=== PATIENT | female | born 1975 | race Caucasian/White ===

== ENCOUNTER 2021-04-25 01:17 | Inpatient (IN) ==
[2021-04-25 02:52] LABS: Basophils % 0.1 % (0.0-0.8); Eosinophils % 0.3 % (0.00-10.9); Hematocrit 40.3 VOL% (35.7-47.0); Hemoglobin 13.5 GM/DL (12.0-16.0); Immature Granulocytes % 0.7 %; Immature Granulocytes Absolute 0.09 #; Lymphocytes # 0.7 10*3/uL (1.4-4.0); Lymphocytes % 5.5 % (21.3-54.2); Mean Corpuscular HGB Conc 33.5 GM/DL (32-36); Mean Platelet Volume 9.2 FL (9.6-12.0); Monocytes % 4.3 % (1.7-12.7); Neutrophils % 89.1 % (38.7-73.9); Platelet Count 200 T/CUMM (130-400); Red Blood Count 4.07 MC/CUMM (3.8-5.5); Red Cell Distribution Width 12.1 % (9.3-17.3); White Blood Count 13.4 T/CUMM (4-12)
[2021-04-25 03:11] LABS: Albumin 2.9 G/DL (3.4-5.0); Bilirubin,Total 0.6 MG/DL (0.20-1.00); Calcium 9.3 MG/DL (8.5-10.1); Osmolality,Calculated 272.8 MOS/KG (273-304); Potassium 3.7 MMOL/L (3.5-5.1); Total Protein 6.3 G/DL (6.4-8.2)
[2021-04-25] MEDS ORDERED: DEXTROSE 50% 25 GM/50 ML SYRINGE IV PRN (04:00)
[2021-04-25 04:17] LABS: Bilirubin,Urine Negative (Negative); Blood, Urine Negative (Negative); Glucose,Urine (UA) Negative (Negative); Ketones,Urine 20 mg/dL (Negative); Mucus,Urine Many /LPF (Occasional); Nitrite,Urine Negative (Negative); Protein,Urine 30 MG/DL; Squamous Epithelial Cell,Urine Occasional /HPF (0-10); Urine Appearance Slightly Hazy (Clear); Urine Color Amber (Yellow); Urine Specific Gravity 1.023 (1.001-1.035)
[2021-04-25 04:23] LABS: INR 1.1; PT Patient Result 12.2 SECS (10.5-12.0); Partial Thromboplastin Time 39.7 SECS (23.8-32.1)
[2021-04-25 04:24] LABS: Barbiturates Screen,Urine Negative (Negative); Benzodiazepines Screen,Urine Negative (Negative); Cannabinoid Screen,Urine Negative (Negative); Opiate Screen,Urine Positive (Negative); Phencyclidine Screen,Urine Negative (Negative)
[2021-04-25] MEDS ORDERED: AMOXICILLIN/CLAV 875 MG TABLET PO SCH (09:00)
[2021-04-25] MEDS: ASPIRIN CHEW 81 MG TABLET PO SCH (10:40)
[2021-04-25] MEDS: APIXABAN 5 MG TABLET PO SCH ×2 (10:40→20:54)
[2021-04-25] MEDS: CITALOPRAM 20 MG TABLET PO SCH (10:40)
[2021-04-25] MEDS: FOLIC ACID 1 MG TABLET PO SCH (10:40)
[2021-04-25] MEDS: ATORVASTATIN 40 MG TABLET PO SCH (20:54)
[2021-04-26] MEDS: buPROPion SR 100 MG TABLET PO SCH (08:46)
[2021-04-26] MEDS: lamoTRIgine 100 MG TABLET PO SCH (08:46)
[2021-04-26] MEDS: PANTOPRAZOLE 40 MG TABLET PO SCH (08:46)
[2021-04-26] MEDS: ASPIRIN CHEW 81 MG TABLET PO SCH (08:46)
[2021-04-26] MEDS: FOLIC ACID 1 MG TABLET PO SCH (08:46)
[2021-04-26] MEDS: CYANOCOBALAMIN 500 MCG TABLET PO SCH (08:47)
[2021-04-26] MEDS: VALPROIC ACID 250 MG/5 ML UDCUP PO SCH (08:47)
[2021-04-26] MEDS: APIXABAN 5 MG TABLET PO SCH ×2 (08:47→20:30)
[2021-04-26] MEDS: CITALOPRAM 20 MG TABLET PO SCH (08:47)
[2021-04-26] MEDS: ATORVASTATIN 40 MG TABLET PO SCH (20:30)
[2021-04-27] MEDS ORDERED: ZIPRASIDONE 20 MG/1 ML VIAL IM ONE (03:10)
[2021-04-27] MEDS: buPROPion SR 100 MG TABLET PO SCH (10:49)
[2021-04-27] MEDS: CITALOPRAM 20 MG TABLET PO SCH (10:49)
[2021-04-27] MEDS: CYANOCOBALAMIN 500 MCG TABLET PO SCH (10:49)
[2021-04-27] MEDS: APIXABAN 5 MG TABLET PO SCH ×2 (10:49→21:00)
[2021-04-27] MEDS: VALPROIC ACID 250 MG/5 ML UDCUP PO SCH (10:49)
[2021-04-27] MEDS: PANTOPRAZOLE 40 MG TABLET PO SCH (10:49)
[2021-04-27] MEDS: FOLIC ACID 1 MG TABLET PO SCH (10:49)
[2021-04-27] MEDS: lamoTRIgine 100 MG TABLET PO SCH (10:49)
[2021-04-27] MEDS: ASPIRIN CHEW 81 MG TABLET PO SCH (10:49)
[2021-04-27] MEDS: LORazepam 2 MG/1 ML VIAL IV PRN (17:22)
[2021-04-27] MEDS: ATORVASTATIN 40 MG TABLET PO SCH (21:00)
[2021-04-28 08:11] LABS: Basophils % 0.3 % (0.0-0.8); Eosinophils # 0.3 10*3/uL (0.0-0.87); Eosinophils % 3.9 % (0.00-10.9); Hematocrit 41.3 VOL% (35.7-47.0); Hemoglobin 13.5 GM/DL (12.0-16.0); Immature Granulocytes % 0.4 %; Immature Granulocytes Absolute 0.03 #; Lymphocytes % 14.4 % (21.3-54.2); Mean Corpuscular HGB Conc 32.7 GM/DL (32-36); Mean Platelet Volume 9.4 FL (9.6-12.0); Monocytes % 6.4 % (1.7-12.7); Neutrophils % 74.6 % (38.7-73.9); Platelet Count 190 T/CUMM (130-400); Red Blood Count 4.17 MC/CUMM (3.8-5.5); Red Cell Distribution Width 12.1 % (9.3-17.3)
[2021-04-28 08:26] LABS: Osmolality,Calculated 272.5 MOS/KG (273-304); Potassium 2.9 MMOL/L (3.5-5.1)
[2021-04-28] MEDS: ASPIRIN CHEW 81 MG TABLET PO SCH (08:55)
[2021-04-28] MEDS: lamoTRIgine 100 MG TABLET PO SCH (08:55)
[2021-04-28] MEDS: FOLIC ACID 1 MG TABLET PO SCH (08:55)
[2021-04-28] MEDS: buPROPion SR 100 MG TABLET PO SCH (08:55)
[2021-04-28] MEDS: CITALOPRAM 20 MG TABLET PO SCH (08:56)
[2021-04-28] MEDS: APIXABAN 5 MG TABLET PO SCH ×2 (08:56→21:25)
[2021-04-28] MEDS: CYANOCOBALAMIN 500 MCG TABLET PO SCH (08:56)
[2021-04-28] MEDS: VALPROIC ACID 250 MG/5 ML UDCUP PO SCH (08:56)
[2021-04-28] MEDS: PANTOPRAZOLE 40 MG TABLET PO SCH (08:57)
[2021-04-28] MEDS: POTASSIUM CHLORIDE RIDER 10 MEQ/100 ML PREMIX IV PRN ×5 (14:04→22:37)
[2021-04-28] MEDS: ATORVASTATIN 40 MG TABLET PO SCH (21:25)
[2021-04-29] MEDS: LORazepam 2 MG/1 ML VIAL IV PRN (02:33)
[2021-04-29 05:02] LABS: Basophils % 0.2 % (0.0-0.8); Eosinophils # 0.3 10*3/uL (0.0-0.87); Eosinophils % 3.2 % (0.00-10.9); Hematocrit 38.7 VOL% (35.7-47.0); Hemoglobin 12.7 GM/DL (12.0-16.0); Immature Granulocytes % 0.5 %; Immature Granulocytes Absolute 0.04 #; Lymphocytes # 1.7 10*3/uL (1.4-4.0); Lymphocytes % 20.3 % (21.3-54.2); Mean Corpuscular HGB Conc 32.8 GM/DL (32-36); Mean Corpuscular Volume 99.2 FL (87-102); Mean Platelet Volume 9.6 FL (9.6-12.0); Monocytes % 6.1 % (1.7-12.7); Neutrophils % 69.7 % (38.7-73.9); Platelet Count 195 T/CUMM (130-400); White Blood Count 8.5 T/CUMM (4-12)
[2021-04-29 05:30] LABS: Albumin 2.7 G/DL (3.4-5.0); Bilirubin,Total 0.4 MG/DL (0.20-1.00); Calcium 8.8 MG/DL (8.5-10.1); Osmolality,Calculated 276.3 MOS/KG (273-304); Potassium 3.3 MMOL/L (3.5-5.1); Total Protein 5.6 G/DL (6.4-8.2)
[2021-04-29] MEDS: buPROPion SR 100 MG TABLET PO SCH (09:09)
[2021-04-29] MEDS: ASPIRIN CHEW 81 MG TABLET PO SCH (09:09)
[2021-04-29] MEDS: CITALOPRAM 20 MG TABLET PO SCH (09:09)
[2021-04-29] MEDS: APIXABAN 5 MG TABLET PO SCH ×2 (09:09→20:45)
[2021-04-29] MEDS: POTASSIUM CHLORIDE RIDER 10 MEQ/100 ML PREMIX IV PRN ×3 (09:09→14:20)
[2021-04-29] MEDS: PANTOPRAZOLE 40 MG TABLET PO SCH (09:09)
[2021-04-29] MEDS: CYANOCOBALAMIN 500 MCG TABLET PO SCH (09:09)
[2021-04-29] MEDS: FOLIC ACID 1 MG TABLET PO SCH (09:09)
[2021-04-29] MEDS: VALPROIC ACID 250 MG/5 ML UDCUP PO SCH (09:10)
[2021-04-29] MEDS: lamoTRIgine 100 MG TABLET PO SCH (09:19)
[2021-04-29] MEDS ORDERED: TUBERCULIN SKIN TEST 0.1 ML SYRINGE INTRADERM ONE (11:00)
[2021-04-29] MEDS: ATORVASTATIN 40 MG TABLET PO SCH (20:45)
[2021-04-30 06:02] LABS: Basophils % 0.2 % (0.0-0.8); Eosinophils # 0.3 10*3/uL (0.0-0.87); Eosinophils % 3.7 % (0.00-10.9); Hematocrit 40.6 VOL% (35.7-47.0); Immature Granulocytes % 0.6 %; Immature Granulocytes Absolute 0.05 #; Lymphocytes # 1.2 10*3/uL (1.4-4.0); Lymphocytes % 13.9 % (21.3-54.2); Mean Corpuscular Volume 98.8 FL (87-102); Mean Platelet Volume 9.2 FL (9.6-12.0); Monocytes % 6.8 % (1.7-12.7); Neutrophils % 74.8 % (38.7-73.9); Platelet Count 168 T/CUMM (130-400); Red Blood Count 4.11 MC/CUMM (3.8-5.5); White Blood Count 8.3 T/CUMM (4-12)
[2021-04-30 06:21] LABS: Albumin 2.7 G/DL (3.4-5.0); Bilirubin,Total 0.8 MG/DL (0.20-1.00); Calcium 9.1 MG/DL (8.5-10.1); Potassium 3.5 MMOL/L (3.5-5.1); Total Protein 5.7 G/DL (6.4-8.2)
[2021-04-30] MEDS: CITALOPRAM 20 MG TABLET PO SCH (09:14)
[2021-04-30] MEDS: FOLIC ACID 1 MG TABLET PO SCH (09:14)
[2021-04-30] MEDS: APIXABAN 5 MG TABLET PO SCH ×2 (09:14→20:42)
[2021-04-30] MEDS: ASPIRIN CHEW 81 MG TABLET PO SCH (09:14)
[2021-04-30] MEDS: buPROPion SR 100 MG TABLET PO SCH (09:14)
[2021-04-30] MEDS: CYANOCOBALAMIN 500 MCG TABLET PO SCH (09:14)
[2021-04-30] MEDS: lamoTRIgine 100 MG TABLET PO SCH (09:14)
[2021-04-30] MEDS: PANTOPRAZOLE 40 MG TABLET PO SCH (09:14)
[2021-04-30] MEDS: LORazepam 2 MG/1 ML VIAL IV PRN (09:15)
[2021-04-30] MEDS: VALPROIC ACID 250 MG/5 ML UDCUP PO SCH (09:17)
[2021-04-30] MEDS: POTASSIUM CHLORIDE RIDER 10 MEQ/100 ML PREMIX IV PRN ×3 (12:50→15:18)
[2021-04-30] MEDS: ONDANSETRON ODT 4 MG TABLET PO PRN (12:50)
[2021-04-30] MEDS: ATORVASTATIN 40 MG TABLET PO SCH (20:42)
[2021-05-01 05:10] LABS: Basophils % 0.4 % (0.0-0.8); Eosinophils # 0.3 10*3/uL (0.0-0.87); Eosinophils % 4.1 % (0.00-10.9); Hematocrit 41.5 VOL% (35.7-47.0); Hemoglobin 13.4 GM/DL (12.0-16.0); Immature Granulocytes % 0.6 %; Immature Granulocytes Absolute 0.04 #; Lymphocytes # 0.9 10*3/uL (1.4-4.0); Lymphocytes % 12.7 % (21.3-54.2); Mean Corpuscular HGB Conc 32.3 GM/DL (32-36); Mean Corpuscular Volume 100.5 FL (87-102); Mean Platelet Volume 10.7 FL (9.6-12.0); Monocytes % 5.6 % (1.7-12.7); Neutrophils % 76.6 % (38.7-73.9); Platelet Count 94 T/CUMM (130-400); Red Blood Count 4.13 MC/CUMM (3.8-5.5); Red Cell Distribution Width 12.1 % (9.3-17.3); White Blood Count 7.1 T/CUMM (4-12)
[2021-05-01 05:17] LABS: Platelet Estimate Adequate
[2021-05-01 05:23] LABS: Calcium 9.1 MG/DL (8.5-10.1); Osmolality,Calculated 275.4 MOS/KG (273-304); Potassium 4.1 MMOL/L (3.5-5.1)
[2021-05-01] MEDS: APIXABAN 5 MG TABLET PO SCH ×2 (10:17→20:51)
[2021-05-01] MEDS: lamoTRIgine 100 MG TABLET PO SCH (10:18)
[2021-05-01] MEDS: ASPIRIN CHEW 81 MG TABLET PO SCH (10:18)
[2021-05-01] MEDS: CYANOCOBALAMIN 500 MCG TABLET PO SCH (10:18)
[2021-05-01] MEDS: buPROPion SR 100 MG TABLET PO SCH (10:19)
[2021-05-01] MEDS: FOLIC ACID 1 MG TABLET PO SCH (10:19)
[2021-05-01] MEDS: PANTOPRAZOLE 40 MG TABLET PO SCH (10:19)
[2021-05-01] MEDS: CITALOPRAM 20 MG TABLET PO SCH (10:19)
[2021-05-01] MEDS: VALPROIC ACID 250 MG/5 ML UDCUP PO SCH (10:19)
[2021-05-01] MEDS: ATORVASTATIN 40 MG TABLET PO SCH (20:51)
[2021-05-02 05:27] LABS: Basophils % 0.3 % (0.0-0.8); Eosinophils # 0.4 10*3/uL (0.0-0.87); Eosinophils % 4.2 % (0.00-10.9); Hematocrit 41.6 VOL% (35.7-47.0); Hemoglobin 13.5 GM/DL (12.0-16.0); Lymphocytes # 1.2 10*3/uL (1.4-4.0); Lymphocytes % 13.2 % (21.3-54.2); Mean Corpuscular HGB Conc 32.5 GM/DL (32-36); Mean Platelet Volume 9.3 FL (9.6-12.0); Monocytes % 7.1 % (1.7-12.7); Neutrophils % 74.8 % (38.7-73.9); Platelet Count 180 T/CUMM (130-400); Red Cell Distribution Width 12.1 % (9.3-17.3); White Blood Count 8.9 T/CUMM (4-12)
[2021-05-02 05:46] LABS: Calcium 9.2 MG/DL (8.5-10.1); Osmolality,Calculated 279.1 MOS/KG (273-304); Potassium 3.5 MMOL/L (3.5-5.1)
[2021-05-02] MEDS: VALPROIC ACID 250 MG/5 ML UDCUP PO SCH (09:09)
[2021-05-02] MEDS: CITALOPRAM 20 MG TABLET PO SCH (09:09)
[2021-05-02] MEDS: APIXABAN 5 MG TABLET PO SCH ×2 (09:09→20:47)
[2021-05-02] MEDS: ASPIRIN CHEW 81 MG TABLET PO SCH (09:09)
[2021-05-02] MEDS: lamoTRIgine 100 MG TABLET PO SCH (09:10)
[2021-05-02] MEDS: PANTOPRAZOLE 40 MG TABLET PO SCH (09:10)
[2021-05-02] MEDS: FOLIC ACID 1 MG TABLET PO SCH (09:10)
[2021-05-02] MEDS: CYANOCOBALAMIN 500 MCG TABLET PO SCH (09:10)
[2021-05-02] MEDS: buPROPion SR 100 MG TABLET PO SCH (09:11)
[2021-05-02] MEDS: ACETAMINOPHEN 325 MG TABLET PO PRN (09:48)
[2021-05-02] MEDS: ALUMINUM/MAGNES/SIMETH MAX STR 30 ML UDCUP PO PRN (18:27)
[2021-05-02] MEDS: ATORVASTATIN 40 MG TABLET PO SCH (20:47)
[2021-05-02] MEDS: ONDANSETRON ODT 4 MG TABLET PO PRN (20:47)
[2021-05-03 06:11] LABS: Basophils % 0.5 % (0.0-0.8); Eosinophils # 0.3 10*3/uL (0.0-0.87); Hematocrit 40.2 VOL% (35.7-47.0); Lymphocytes # 1.3 10*3/uL (1.4-4.0); Lymphocytes % 20.9 % (21.3-54.2); Mean Corpuscular HGB Conc 32.3 GM/DL (32-36); Mean Corpuscular Volume 99.3 FL (87-102); Mean Platelet Volume 9.6 FL (9.6-12.0); Monocytes % 9.3 % (1.7-12.7); Platelet Count 190 T/CUMM (130-400); Red Blood Count 4.05 MC/CUMM (3.8-5.5); Red Cell Distribution Width 12.1 % (9.3-17.3); White Blood Count 6.2 T/CUMM (4-12)
[2021-05-03 06:32] LABS: Calcium 9.1 MG/DL (8.5-10.1); Osmolality,Calculated 270.7 MOS/KG (273-304); Potassium 3.4 MMOL/L (3.5-5.1)
[2021-05-03] MEDS: DESITIN 4OZ/NYSTATIN 15 GRAM MIXTURE PASTE TOP SCH ×2 (09:26→20:24)
[2021-05-03] MEDS: lamoTRIgine 100 MG TABLET PO SCH (09:27)
[2021-05-03] MEDS: ASPIRIN CHEW 81 MG TABLET PO SCH (09:27)
[2021-05-03] MEDS: FOLIC ACID 1 MG TABLET PO SCH (09:27)
[2021-05-03] MEDS: VALPROIC ACID 250 MG/5 ML UDCUP PO SCH (09:27)
[2021-05-03] MEDS: APIXABAN 5 MG TABLET PO SCH ×2 (09:27→20:24)
[2021-05-03] MEDS: buPROPion SR 100 MG TABLET PO SCH (09:27)
[2021-05-03] MEDS: CYANOCOBALAMIN 500 MCG TABLET PO SCH (09:27)
[2021-05-03] MEDS: PANTOPRAZOLE 40 MG TABLET PO SCH (09:27)
[2021-05-03] MEDS: CITALOPRAM 20 MG TABLET PO SCH (09:28)
[2021-05-03] MEDS: ACETAMINOPHEN 325 MG TABLET PO PRN ×2 (14:48→22:51)
[2021-05-03] MEDS: ONDANSETRON 4 MG/2 ML VIAL IV PRN (19:00)
[2021-05-03] MEDS: ATORVASTATIN 40 MG TABLET PO SCH (20:24)
[2021-05-04] MEDS: FOLIC ACID 1 MG TABLET PO SCH (08:48)
[2021-05-04] MEDS: ASPIRIN CHEW 81 MG TABLET PO SCH (08:48)
[2021-05-04] MEDS: CYANOCOBALAMIN 500 MCG TABLET PO SCH (08:48)
[2021-05-04] MEDS: CITALOPRAM 20 MG TABLET PO SCH (08:48)
[2021-05-04] MEDS: APIXABAN 5 MG TABLET PO SCH ×2 (08:48→20:21)
[2021-05-04] MEDS: VALPROIC ACID 250 MG/5 ML UDCUP PO SCH (08:48)
[2021-05-04] MEDS: buPROPion SR 100 MG TABLET PO SCH (08:48)
[2021-05-04] MEDS: PANTOPRAZOLE 40 MG TABLET PO SCH (08:48)
[2021-05-04] MEDS: lamoTRIgine 100 MG TABLET PO SCH (08:51)
[2021-05-04] MEDS: DESITIN 4OZ/NYSTATIN 15 GRAM MIXTURE PASTE TOP SCH ×2 (08:52→20:23)
[2021-05-04] MEDS: POTASSIUM CHLORIDE RIDER 10 MEQ/100 ML PREMIX IV PRN ×3 (08:52→11:21)
[2021-05-04] MEDS: ONDANSETRON 4 MG/2 ML VIAL IV PRN ×2 (11:41→18:02)
[2021-05-04] MEDS: ALUMINUM/MAGNES/SIMETH MAX STR 30 ML UDCUP PO PRN ×2 (15:49→23:54)
[2021-05-04] MEDS: ONDANSETRON ODT 4 MG TABLET PO PRN (17:26)
[2021-05-04] MEDS: ATORVASTATIN 40 MG TABLET PO SCH (20:21)
[2021-05-04] MEDS: ACETAMINOPHEN 325 MG TABLET PO PRN (20:22)
[2021-05-05] MEDS: ACETAMINOPHEN 325 MG TABLET PO PRN ×2 (04:22→15:03)
[2021-05-05 08:23] LABS: Calcium 8.4 MG/DL (8.5-10.1); Osmolality,Calculated 266.1 MOS/KG (273-304); Potassium 4.6 MMOL/L (3.5-5.1)
[2021-05-05] MEDS: lamoTRIgine 100 MG TABLET PO SCH (08:48)
[2021-05-05] MEDS: buPROPion SR 100 MG TABLET PO SCH (08:48)
[2021-05-05] MEDS: ASPIRIN CHEW 81 MG TABLET PO SCH (08:48)
[2021-05-05] MEDS: APIXABAN 5 MG TABLET PO SCH ×2 (08:48→20:44)
[2021-05-05] MEDS: PANTOPRAZOLE 40 MG TABLET PO SCH (08:48)
[2021-05-05] MEDS: CYANOCOBALAMIN 500 MCG TABLET PO SCH (08:48)
[2021-05-05] MEDS: VALPROIC ACID 250 MG/5 ML UDCUP PO SCH (08:48)
[2021-05-05] MEDS: FOLIC ACID 1 MG TABLET PO SCH (08:48)
[2021-05-05] MEDS: CITALOPRAM 20 MG TABLET PO SCH (08:49)
[2021-05-05] MEDS: DESITIN 4OZ/NYSTATIN 15 GRAM MIXTURE PASTE TOP SCH ×2 (08:49→20:45)
[2021-05-05] MEDS: ALUMINUM/MAGNES/SIMETH MAX STR 30 ML UDCUP PO PRN ×2 (13:16→20:44)
[2021-05-05] MEDS: ONDANSETRON ODT 4 MG TABLET PO PRN (15:03)
[2021-05-05] MEDS: ONDANSETRON 4 MG/2 ML VIAL IV PRN (18:22)
[2021-05-05] MEDS: ATORVASTATIN 40 MG TABLET PO SCH (20:43)
[2021-05-06] MEDS: ACETAMINOPHEN 325 MG TABLET PO PRN ×2 (00:36→14:46)
[2021-05-06] MEDS: ONDANSETRON ODT 4 MG TABLET PO PRN (04:16)
[2021-05-06] MEDS: APIXABAN 5 MG TABLET PO SCH ×2 (08:56→20:30)
[2021-05-06] MEDS: ASPIRIN CHEW 81 MG TABLET PO SCH (08:56)
[2021-05-06] MEDS: buPROPion SR 100 MG TABLET PO SCH (08:56)
[2021-05-06] MEDS: PANTOPRAZOLE 40 MG TABLET PO SCH (08:56)
[2021-05-06] MEDS: FOLIC ACID 1 MG TABLET PO SCH (08:56)
[2021-05-06] MEDS: CYANOCOBALAMIN 500 MCG TABLET PO SCH (08:56)
[2021-05-06] MEDS: lamoTRIgine 100 MG TABLET PO SCH (08:56)
[2021-05-06] MEDS: VALPROIC ACID 250 MG/5 ML UDCUP PO SCH (08:56)
[2021-05-06] MEDS: DESITIN 4OZ/NYSTATIN 15 GRAM MIXTURE PASTE TOP SCH ×2 (08:56→20:30)
[2021-05-06] MEDS: CITALOPRAM 20 MG TABLET PO SCH (08:56)
[2021-05-06] MEDS: ALUMINUM/MAGNES/SIMETH MAX STR 30 ML UDCUP PO PRN ×2 (14:45→20:30)
[2021-05-06] MEDS: ONDANSETRON 4 MG/2 ML VIAL IV PRN (14:46)
[2021-05-06] MEDS: ATORVASTATIN 40 MG TABLET PO SCH (20:30)
[2021-05-07] MEDS: ACETAMINOPHEN 325 MG TABLET PO PRN (02:29)
[2021-05-07] MEDS: ALUMINUM/MAGNES/SIMETH MAX STR 30 ML UDCUP PO PRN ×2 (02:49→09:02)
[2021-05-07] MEDS: LORazepam 2 MG/1 ML VIAL IV PRN (02:54)
[2021-05-07] MEDS: CYANOCOBALAMIN 500 MCG TABLET PO SCH (08:57)
[2021-05-07] MEDS: buPROPion SR 100 MG TABLET PO SCH (08:58)
[2021-05-07] MEDS: PANTOPRAZOLE 40 MG TABLET PO SCH (08:58)
[2021-05-07] MEDS: lamoTRIgine 100 MG TABLET PO SCH (08:58)
[2021-05-07] MEDS: CITALOPRAM 20 MG TABLET PO SCH (08:58)
[2021-05-07] MEDS: APIXABAN 5 MG TABLET PO SCH (08:58)
[2021-05-07] MEDS: FOLIC ACID 1 MG TABLET PO SCH (08:58)
[2021-05-07] MEDS: ASPIRIN CHEW 81 MG TABLET PO SCH (08:58)
[2021-05-07] MEDS: VALPROIC ACID 250 MG/5 ML UDCUP PO SCH (08:58)
[2021-05-07] MEDS: ONDANSETRON 4 MG/2 ML VIAL IV PRN (09:02)
[2021-05-07] MEDS: DESITIN 4OZ/NYSTATIN 15 GRAM MIXTURE PASTE TOP SCH (10:45)
[2021-05-07 11:27] VITALS: BP 97/60
== END 2021-05-07 14:11 | disposition home health service (06) | DRG 914 ==
LOC: EDUNIT# → EDBD → N.CVR 01:17 → N.ED 01:17 → SUATTDRO 03:55 → N.3E 05:16 → SUATTDRO 09:03
PROVIDERS: ADMIT Internal Medicine; ATTEND Internal Medicine